=== PATIENT | male | born 1930 | race Caucasian/White ===

== ENCOUNTER 2016-10-23 13:15 | Inpatient (IN) | payer MEDICARE ==
[~2016-10-23] VITALS: Ht 175.2 cm; Wt 75.8 kg
--- NOTE | ~2016-10-23 | CON ---
[place], [place] REPORT OF CONSULTATION NAME: SUBHASH HAMMER [facility] #: [id number] UNIT #: [id number] ROOM: 416 DOCTOR: JENIFER HARMON MDSONU BIRTHDATE: [birth year] DOS: 10/25/2016 CONSULTATION REQUESTED BY: Hospitalist Service. REASON FOR CONSULTATION: Assessment of ongoing acute respiratory complaints with COPD exacerbation. HISTORY OF PRESENT ILLNESS: An 86-year-old white male who has been noted with ongoing symptoms of cough, which has been present for the past several weeks with gradual worsening occurred. The patient developed symptoms of increased shortness of breath and wheezing. He has been trying to stop his appointment with the [place] physician. An appointment for the patient was previously scheduled to be completed yesterday, but he learned that his physician who is going to see him at the [facility] was . He had been offered to have a chest x-ray done by the [facility], but the patient preferred to come to the hospital for further assessment. He has not been doing well per the patient with previous treatment. The cough has been described moderate to severe without any sputum expectoration. Coughing has been noted significantly progressive as per spouse as well who assisted with the history. He has been noted with shortness of breath, which occurs with mild exertion walking on a level surface about 10-15 feet as well. He was also noted continuous wheezing with the chest tightness. There were no symptoms of chest pain described. The patient has been assessed in the Emergency Room yesterday and has been admitted to the hospital for medical management of acute exacerbation of COPD with acute tracheobronchitis. REVIEW OF SYSTEMS: CONSTITUTIONAL: Fatigue and tiredness noted without symptoms of fever or chills. EYES: Denied any burning, redness, or tenderness. EARS, NOSE, THROAT SYMPTOMS: No sore throat, hoarseness, otalgia, postnasal drainage or epistaxis. CARDIOVASCULAR: Denies anginal pain, edema of the lower extremities or palpitations. GASTROINTESTINAL: Denies dysphagia, nausea, vomiting, diarrhea, abdominal pain, hematemesis, melena, or hematochezia. SKIN: Denies lesions or rashes. GENITOURINARY: Denies dysuria, suprapubic pain, hematuria. CENTRAL NERVOUS SYSTEM: Denies dizziness, headache, diplopia or syncopal episodes. Remaining systems were reviewed with the patient, they were noted all negative. PAST MEDICAL HISTORY: 1. History of longstanding centrilobular emphysema. 2. History of essential hypertension. 3. Gastroesophageal reflux. 4. BPH. 5. History of type 2 diabetes mellitus. SOCIAL HISTORY: The patient is and lives at home, has 2 children. He [place], [place] REPORT OF CONSULTATION NAME: SUBHASH HAMMER UNIT #: [id number] ROOM: [facility] DOCTOR: SONU SHOEMAKER MD BIRTHDATE: [birth year] has worked in the [employer] for 32 years or more. Denies any history of illicit drug use or any alcohol use. PAST SURGICAL HISTORY: No known major surgeries. FAMILY HISTORY: Noncontributory. HOME MEDICATIONS: Listed as use of terazosin, Prilosec, metformin, lisinopril, DuoNeb, albuterol sulfate with the nebulizer and Proventil HFA inhaler use as well. DRUG ALLERGIES: No known drug allergies. PHYSICAL EXAMINATION: GENERAL: This is an 86-year-old white male, currently sitting on the bed for this patient without any acute distress. His height was recorded by the nursing staff at the time of admission with height of 5 feet 9 inches, weight of 167 pounds, BMI 24.7. VITAL SIGNS: The patient showed normal temperature, respiratory rate 20-18, heart rate of 102-127 sinus tachycardia on admission, blood pressure 120/61, 101/60. Pulse oxygen saturation of the patient noted on 2 liters nasal cannula 96% saturation. HEENT: Examination shows head was atraumatic. Eyes nonicterus. NECK: Supple. CARDIOVASCULAR: S1, S2 audible. LUNGS: The patient was noted without any crackles, rhonchi, or wheezing for this patient, breaths are noted severely diminished bilaterally. ABDOMEN: Flat, soft, nontender, bowel sounds present. EXTREMITIES: Shows no edema, clubbing or cyanosis. CENTRAL NERVOUS SYSTEM: Shows no gross focal deficit. MUSCULOSKELETAL: No deformities. SKIN: No lesions or rashes. LABORATORY DATA: CMP of the patient that was done for the patient on 10/23 for this patient shows glucose 128, BUN and creatinine was normal and other electrolytes normal except magnesium mild decreased at 1.4. PT, PTT on 10/23 was noted as normal. Lactic acid 2.7, followup lactic acid 2.5 on the . After that, no further lactic acid was done. CBC of the patient on 10/23, WBC count 12.2, hematocrit 37.7, platelet count was normal. Chest x-ray for the patient shows evidence of hyperinflation and COPD changes. IMPRESSION: 1. The patient with progressive symptoms of acute exacerbation of chronic obstructive pulmonary disease occurring for the past several days and weeks for this patient with recent worsening noted. 2. The patient with history of work in the [employer] for this patient as well. 3. History of essential hypertension and type 2 diabetes mellitus and other as listed. PLAN OF TREATMENT: The patient has been currently getting Solu-Medrol very [place], [place] REPORT OF CONSULTATION NAME: SUBHASH HAMMER UNIT #: [id number] ROOM: [facility] DOCTOR: SONU SHOEMAKER MD BIRTHDATE: [birth year] dose, which will be continued. Bronchodilator will be continued. Assess the patient for bronchoscopy that will be done on Thursday to help clear mucus plug. The patient stated the symptoms have been noted much more chronic as per spouse than actually reported by the patient, especially of cough. All other supportive plan of therapy management and care. Risk and benefits of procedure have been discussed with the patient and he was agreeable for the procedure. Procedure was planned to be done on Thursday. The patient n.p.o. past midnight status post Thursday midnight was ordered. SONU BURGESS MD CM:CONSTR:REPORT OF CONSULTATION 1243 10/26/16 0136 interface
--- NOTE | ~2016-10-23 | PR ---
[place], [place] PROGRESS NOTE [id number] UNIT #: [id number] ROOM: 416 DOCTOR: JENIFER HARMON MD,SONU BIRTHDATE: [birth year] DOS: 10/28/2016 SUBJECTIVE: He had a bronchoscopy done yesterday with significant improvement in the respiratory symptom noted. He has not been noted any ongoing acute respiratory complaints at this time. The patient remains awake and alert. Coughing and wheezing has also improved markedly. OBJECTIVE: VITAL SIGNS: For the patient which has been recorded showed the temperature noted as normal, respiratory rate recorded at 20, heart rate 83-111, blood pressure 120/82. Pulse oxygen saturation was noted on 2 L nasal cannula 96% saturation. HEENT: No acute change. NECK: Supple. CARDIOVASCULAR: S1, S2 audible. LUNGS: The patient was noted with moderate decreased breath sounds, scattered expiratory wheezing, no crackles. ABDOMEN: Soft, nontender. LABORATORY DATA: Gram stain of the bronchial washing show few white blood cells with epithelial cells, few gram-positive cocci in pairs. Final culture results were pending. IMPRESSION: 1. Marked improvement noted and resolution of the acute respiratory symptoms significantly post-bronchoscopy. 2. The patient with overall debility, which has been improving as well. PLAN OF TREATMENT: The patient will be discharged home on oral medications at present time. He needs to be assessed for home oxygen supplementation prior to the discharge. Other supportive therapy, plan and management to be continued. Usual care. Other plan of management and therapies. SONU BURGESS MD CM:PNTRANS [id number] SONU HARMON MD 10/28/16 1337 interface
--- NOTE | ~2016-10-23 | PR ---
[place], [place] PROGRESS NOTE [id number] UN[facility] #: [id number] ROOM: 416 DOCTOR: JENIFER HARMON MD,SONU BIRTHDATE: [birth year] DOS: 10/27/2016 SUBJECTIVE: The patient was seen and examined on 10/27/2016. He has been still noted with severe nonproductive cough, which has been noticed several times in the day. Denies symptoms of chest pain, wheezing and shortness of breath, the patient has been noted partially decreased. There were symptoms of chest pain. He is currently noted n.p.o. past night for bronchoscopy to be done today. OBJECTIVE: VITAL SIGNS: Normal temperature, respiratory rate 20, heart rate 110, blood pressure 122/70. Pulse oxygen saturation of the patient noted on 2 liters nasal canula, 92% saturation. HEENT: Examination shows head was atraumatic. Eyes: No icterus. NECK: Supple. CARDIOVASCULAR: S1, S2 audible. LUNGS: The patient was noted without any crackles. Mild to moderate expiratory wheezing was present. ABDOMEN: Flat, soft, nontender. EXTREMITIES: Shows no edema. LABORATORY DATA: The patient's CBC today: WBC count 13.5, hemoglobin 10.8, hematocrit 33.7, platelet count was normal. The creatinine today was noted as normal. IMPRESSION: Ongoing acute exacerbation of chronic obstructive pulmonary disease with acute tracheobronchitis with persistent symptoms of nonproductive cough was also noted. Previous history of nicotine dependence. PLAN OF TREATMENT: The patient will be continued with current plan of therapy at this time without any changes in the treatment. Continue other supportive plan and management. Any modification treatment if necessary will be done after the bronchoscopy. SONU BURGESS MD CM:PNTRANS 1013 21 SONU HARMON MD 10/27/161920 interface
--- NOTE | ~2016-10-23 | PR ---
[place], [place] PROGRESS NOTE [id number] UNIT #: [id number] ROOM: 416 DOCTOR: LANEY NGUYEN MD BIRTHDATE: [birth year] DOS: SUBJECTIVE: The has been admitted to the hospital with COPD with emphysema, with acute bronchitis, with hypoxia, hypertension, GERD syndrome, BPH, history of diabetes mellitus. He is still having a lot of cough, has been seen by Dr. Serna; and he is scheduled for bronchoscopy tomorrow. His CBC today showed white count 13,500, hemoglobin 10.8, hematocrit 33.7, 98% segmented cells, 2% lymphocytes, 13% neutrophils. Creatinine level is normal. OBJECTIVE: VITAL SIGNS: His blood pressure is 100/58, pulse is 102, respirations 18, temperature 97.9, pulse oximeter on 3 liter is 98%. HEART: Regular. CHEST: Having increased expiration with occasional crepitation. ABDOMEN: Soft. LANEY NGUYEN MD CM:PNTRANS 1 05 LANEY NGUYEN MD 10/26/16 2305 interface
--- NOTE | ~2016-10-23 | PROC NOTE ---
[place], [place] PROCEDURE NOTE NAME: SUBHASH HAMMER UNIT #: [id number] ROOM: 416 DOCTOR: JENIFER HARMON MD,SONU BIRTHDATE: [birth year] DOS: 10/27/2016 PREOPERATIVE DIAGNOSIS: Severe nonproductive cough with the patient's inability to expectorate sputum. POSTOPERATIVE DIAGNOSIS: Removal of the plugs at the mucous and endobronchial tree bilaterally, which noted very severe, bilaterally finding of acute tracheobronchitis were also noted. PROCEDURE DESCRIPTION: Informed consent was obtained for the patient. The patient brought to the OR and placed in supine position. The conscious sedation administered by the Anesthesia Department. After achieving appropriate sedation, airway introduced into the mouth. The bronchoscope advanced into the airway into laryngeal area. Epiglottis and vocal cords were seen. The bronchoscope advanced to the vocal cord into the tracheal lumen. The tracheal lumen noted moderate to large amount of thick mucoid secretions. The patient with small purulent secretions suctioned out the caterina level. Caterina noted sharp. Right upper, right middle, right lower, left upper, lingula, and lower lobe bronchi were noted with thick plugs of submucous impaction. All the secretions suctioned out clear with the help of normal saline wash, sent for culture. The procedure was tolerated by the patient without any complications. Postoperative findings were discussed with the patient's family members after the completion of the procedure. Bronchial washings sent for all the appropriate cultures. Based on the bronchoscopy, no major changes in the management will be needed. SONU BURGESS MD CM:PROCNOTE:PROCEDURE NOTE [id number] SONU HARMON MD
--- NOTE | ~2016-10-23 | PR ---
[place], [place] PROGRESS NOTE NAME: [facility]ASH [facility]MER [facility] [id number] UNIT #: [id number] ROOM: 416 DOCTOR: JENIFER HARMON MD,SONU BIRTHDATE: [birth year] DOS: 10/26/2016 SUBJECTIVE: He has been rather noted without any acute distress at this time. Coughing has been still noted severe, remains nonproductive. Shortness of breath and wheezing were noted partially decreased. Denies symptoms of chest pain, abdominal pain. He has been continued Solu-Medrol, bronchodilators and the Mucinex. OBJECTIVE: VITAL SIGNS: Shows normal temperature, respiratory rate 20, heart rate 109, blood pressure 135/74. The pulse oxygen saturation on room air was 98% saturation. HEENT: Showed no acute change. NECK: Supple. CARDIOVASCULAR SYSTEM: S1, S2 is audible. LUNGS: The patient was noted without any wheezing, without any rather crackles. Expiratory wheezing was present. ABDOMEN: Soft, nontender. LABORATORY DATA: CBC today: WBC count 13.5, hemoglobin 10.8, hematocrit 33.7, platelet count was normal. Creatinine patient noted today as normal. IMPRESSION: Acute tracheobronchitis with acute exacerbation of chronic obstructive pulmonary disease with persistent nonproductive cough. Mild leucocytosis. PLAN OF TREATMENT: Continue antibiotics, bronchodilators, and oxygen supplementation. Plan for bronchoscopy in the morning for this patient was already established. N.p.o. past midnight for tonight for the patient bronchoscopy in the morning. SONU BURGESS MD CM:PNTRANS 1529 0056 SONU HARMON MD 10/27/16 0056 interface
[~2016-10-23 13:15] MED LIST: ALLFEN400 MG PO; CRESTOR20 MG PO; GABAPENTIN300 MG PO; METFORMIN1000 MG PO; NAPROSYN500 MG PO; NORCO 325 MG-51 TAB PO; NORCO 5-325 TA1 EACH PO; PENICILLIN VK500 MG PO; PRILOSEC20 MG PO; PRINIVIL5 MG PO; PROVENTIL0.09 MG/AC INH; PYRIDIUM200 MG PO; SYMBICORT1 AE1 PO; TERAZOSIN HCL10 M1 PO; VENTOLIN H0.09 MG/AC INH; VICODIN 5/500 505 MG PO
[2016-10-23 13:30] VITALS: BP 120/61
[2016-10-23 14:08] LABS: BASO # 0.1 10*3/uL (0.0-0.1); BASO % 0.8 % (0.0-1.0); EOS # 0.1 10*3/uL (0.0-0.4); EOS % 1.8 % (1.0-4.0); HEMATOCRIT 37.7 % (42.0-52.0); HEMOGLOBIN 12.2 g/dl (14.0-18.0); IG # 0.1 10*3/uL (0.0-0.1); LYMPH # 1.2 10*3/uL (1.3-4.4); MEAN CELL VOLUME 93.3 fl (80.0-94.0); MEAN CORPUSCULAR HGB 30.2 pg (27.0-31.0); MEAN CORPUSCULAR HGB CONC 32.4 g/dl (33.0-37.0); MEAN PLATELET VOLUME 9.7 fl (9.6-12.3); MONO # 0.7 10*3/uL (0.1-1.0); MONO % 10.3 % (3.0-9.0); NEUT # 4.5 10*3/uL (2.3-7.9); NEUT % 68.3 % (47.0-73.0); PLATELET COUNT AUTOMATED 328 10*3/uL (130-400); RED BLOOD COUNT 4.04 10*6/uL (4.50-5.90); RED CELL DISTRI WIDTH 13.7 % (0-14.5); WHITE BLOOD COUNT 6.5 10*3/uL (4.8-10.8)
[2016-10-23 14:18] LABS: ALBUMIN 3.4 gm/dl (3.1-4.5); ALKALINE PHOSPHATASE 81 U/L (45-117); BILIRUBIN, TOTAL 0.4 mg/dl (0.2-1.0); BUN 10 mg/dl (7-24); CARBON DIOXIDE 30 mmol/L (21-32); CHLORIDE 105 mmol/L (98-107); EST GLOM FILT AFRICAN AMERICAN > 60 ml/min; GLUCOSE 128 mg/dL (65-99); MAGNESIUM 1.4 mg/dL (1.5-2.1); SGOT/AST 12 IU/L (3-35); SGPT/ALT 22 U/L (12-78); SODIUM 141 mmol/L (136-145); TOTAL PROTEIN 7.1 gm/dL (6.4-8.2)
[2016-10-23 14:20] LABS: C-REACTIVE PROTEIN < 0.29 MG/DL (0-0.3); TROPONIN I < 0.015 ng/ml (<0.045)
[2016-10-23 14:20] LABS: PROTHROMBIN TIME 10.2 SECONDS (9.0-12.4)
[2016-10-23 15:58] LABS: LA>2 REFLEX 2 HR DRAW NOW
[2016-10-23 16:25] LABS: LA>2 RFLX FOLLOW UP AT 2 HRS 2.7 mmol/L (0.4-2.0)
[2016-10-23 16:36] VITALS: BP 133/79
[2016-10-23] MEDS ORDERED: Ventolin 02.5 MG/3 M INH (17:03)
[2016-10-23] MEDS ORDERED: PROVENTIL0.09 MG/A1 INH (17:05)
[2016-10-23 17:34] VITALS: BP 143/79
[2016-10-23 18:19] LABS: LA>2 REFLEX 4 HR DRAW NOW
[2016-10-23 20:00] VITALS: BP 141/73
[2016-10-24] VITALS: BP 140/63
[2016-10-24 12:00] VITALS: BP 138/66
[2016-10-24 16:00] VITALS: BP 133/75
[2016-10-24 20:19] VITALS: BP 108/64
[2016-10-25] VITALS: BP 101/60
[2016-10-25 04:00] VITALS: BP 105/65
[2016-10-25 08:00] VITALS: BP 135/67
[2016-10-25 12:00] VITALS: BP 121/67
[2016-10-25 16:00] VITALS: BP 128/79
[2016-10-25 20:00] VITALS: BP 126/62
[2016-10-26] VITALS: BP 114/58
[2016-10-26 06:11] LABS: HEMATOCRIT 33.7 % (42.0-52.0); HEMOGLOBIN 10.8 g/dl (14.0-18.0); MEAN CELL VOLUME 95.2 fl (80.0-94.0); MEAN CORPUSCULAR HGB 30.5 pg (27.0-31.0); MEAN PLATELET VOLUME 10.5 fl (9.6-12.3); PLATELET COUNT AUTOMATED 293 10*3/uL (130-400); RED BLOOD COUNT 3.54 10*6/uL (4.50-5.90); RED CELL DISTRI WIDTH 13.8 % (0-14.5); WHITE BLOOD COUNT 13.5 10*3/uL (4.8-10.8)
[2016-10-26 06:33] LABS: LYMPHOCYTE # 0.3 10*3/uL (1.3-4.4); NEUTROPHIL # 13.2 10*3/uL (2.3-7.9); NEUTROPHILS 98 % (47-73); PLATELET SUFFICIENCY NORMAL (NORMAL); TOTAL CELLS COUNTED 100 #CELLS
[2016-10-26 06:44] LABS: EST GLOM FILT AFRICAN AMERICAN > 60 ml/min
[2016-10-26 08:00] VITALS: BP 113/60
[2016-10-26 12:00] VITALS: BP 135/74
[2016-10-26 16:00] VITALS: BP 133/69
[2016-10-26 20:00] VITALS: BP 146/82
[2016-10-27] VITALS (10 sets, daily range): BP systolic 117–146; BP diastolic 64–90
[2016-10-28] VITALS: BP 115/65
[2016-10-28 08:00] VITALS: BP 128/82
[2016-10-28] MEDS ORDERED: ZITHROMAX500 MG PO (11:26)
[2016-10-28] MEDS ORDERED: PREDNISONE10 MG PO (11:26)
[2016-10-28 12:00] VITALS: BP 137/69
[2016-10-28 13:08] LABS: ACID FAST SPEC PROCESSING Concentration (.)
== END 2016-10-28 15:18 | disposition home or self-care (01) | DRG 871 ==
LOC: ED 13:15 → 4E 16:10 → EDHOLD 16:10 → 4E 16:25
PROVIDERS: Internal Medicine; Internal Medicine Critical Care Medicine; Student in an Organized Health Care Education/Training Program
PROC: 0BC58ZZ Extirpation of Matter from Right Middle Lobe Bronchus, Via Natural or Artificial Opening Endoscopic (ICD-10-PCS; principal; 2016-10-27)
PROC: 0BCB8ZZ Extirpation of Matter from Left Lower Lobe Bronchus, Via Natural or Artificial Opening Endoscopic (ICD-10-PCS; principal; 2016-10-27)
PROC: 0BC48ZZ Extirpation of Matter from Right Upper Lobe Bronchus, Via Natural or Artificial Opening Endoscopic (ICD-10-PCS; principal; 2016-10-27)
PROC: 0BC88ZZ Extirpation of Matter from Left Upper Lobe Bronchus, Via Natural or Artificial Opening Endoscopic (ICD-10-PCS; principal; 2016-10-27)
PROC: 0BC68ZZ Extirpation of Matter from Right Lower Lobe Bronchus, Via Natural or Artificial Opening Endoscopic (ICD-10-PCS; principal; 2016-10-27)
PROC: 0BC98ZZ Extirpation of Matter from Lingula Bronchus, Via Natural or Artificial Opening Endoscopic (ICD-10-PCS; principal; 2016-10-27)
DX: A41.9 Sepsis, unspecified organism (principal); J18.9 Pneumonia, unspecified organism; J44.0 Chronic obstructive pulmonary disease with (acute) lower respiratory infection; E11.9 Type 2 diabetes mellitus without complications; D72.810 Lymphocytopenia; I10 Essential (primary) hypertension; J44.1 Chronic obstructive pulmonary disease with (acute) exacerbation; J20.9 Acute bronchitis, unspecified; K21.9 Gastro-esophageal reflux disease without esophagitis; N40.0 Benign prostatic hyperplasia without lower urinary tract symptoms; R09.02 Hypoxemia; R65.20 Severe sepsis without septic shock; Z79.84 Long term (current) use of oral hypoglycemic drugs; Z79.899 Other long term (current) drug therapy

== ENCOUNTER → 2018-03-12 | Outpatient (CLI) | payer MEDICARE ==
[~2018-03-12] MED LIST changes: +PREDNISONE10 MG PO; +PROVENTIL0.09 MG/A1 INH; +Ventolin 02.5 MG/3 M INH; +ZITHROMAX500 MG PO
== END | disposition home or self-care (01) ==
LOC: CARD 08:30
DX: I34.0 Nonrheumatic mitral (valve) insufficiency (principal)

== ENCOUNTER → 2018-08-09 | Outpatient (CLI) | payer OTHER, MEDICARE | END | disposition home or self-care (01) | LOC: RAD 10:07 | DX: M25.642 Stiffness of left hand, not elsewhere classified (principal); M25.641 Stiffness of right hand, not elsewhere classified ==

== ENCOUNTER → 2020-09-05 | Outpatient (CLI) | payer MEDICARE ==
[2020-09-05 11:40] LABS: ACT PARTIAL THROMBO TIME 25.4 SECONDS (20.0-32.1)
== END | disposition home or self-care (01) ==
LOC: LAB 10:44
PROVIDERS: ATTEND Urology
DX: Z01.818 Encounter for other preprocedural examination (principal); R00.0 Tachycardia, unspecified; D68.8 Other specified coagulation defects

== ENCOUNTER 2021-08-11 10:24 | Emergency (ER) | payer MEDICARE ==
[2021-08-11 10:32] VITALS: BP 135/78
[2021-08-11 11:04] LABS: BILIRUBIN Negative (Negative); BLOOD 2+ (Negative); CLARITY Clear (Clear); COLOR Yellow (Yellow); GLUCOSE 1+ (Negative); KETONE Negative (Negative); LEUKO ESTERASE Negative (Negative); NITRITE Negative (Negative); UROBILINOGEN 0.2 E.U./dl (0.0-1.0)
[2021-08-11 11:25] LABS: RBC 41-50 rbc/hpf (0-2)
[2021-08-11 11:26] LABS: BACTERIA TRACE; WBC 0-2 wbc/hpf (0-5)
== END 2021-08-11 11:49 | disposition home or self-care (01) ==
LOC: ED 10:24
PROVIDERS: Emergency Medicine
DX: R33.9 Retention of urine, unspecified (principal); Z79.899 Other long term (current) drug therapy; Z98.890 Other specified postprocedural states

== ENCOUNTER → 2021-08-30 | Outpatient (CLI) | payer OTHER ==
[2021-08-30 09:43] LABS: CREATININE 0.91 mg/dL (0.70-1.30)
== END | disposition home or self-care (01) ==
LOC: CT 09:00 → LAB 09:06
PROVIDERS: Radiology Diagnostic Radiology; ATTEND Urology
DX: N20.0 Calculus of kidney (principal); N40.0 Benign prostatic hyperplasia without lower urinary tract symptoms; I31.3 Pericardial effusion (noninflammatory)

== ENCOUNTER → 2021-09-11 | Outpatient (CLI) | payer OTHER | END | disposition home or self-care (01) | LOC: CARD 11:47 | PROVIDERS: ATTEND Urology | DX: Z01.818 Encounter for other preprocedural examination (principal); R94.31 Abnormal electrocardiogram [ECG] [EKG]; R00.0 Tachycardia, unspecified; R33.9 Retention of urine, unspecified; I25.10 Atherosclerotic heart disease of native coronary artery without angina pectoris ==

== ENCOUNTER 2021-12-25 19:04 | Emergency (ER) | payer MEDICARE ==
[~2021-12-25] VITALS: Ht 175.2 cm; Wt 65.8 kg
[2021-12-25 19:49] VITALS: BP 144/100
[2021-12-25] MEDS ORDERED: FLOMAX0.4 MG PO (19:50)
[2021-12-25 20:22] LABS: BILIRUBIN Negative (Negative); BLOOD 3+ (Negative); CLARITY Turbid (Clear); COLOR Orange (Yellow); GLUCOSE Negative (Negative); KETONE Negative (Negative); LEUKO ESTERASE 3+ (Negative); NITRITE Negative (Negative); PH 5.5 (4.5-8.0); SPECIFIC GRAVITY <= 1.005 (1.001-1.030); UROBILINOGEN 0.2 E.U./dl (0.0-1.0)
[2021-12-25 20:36] LABS: WBC TNTC wbc/hpf (0-5)
[2021-12-25] MEDS ORDERED: MACROBID100 M1 PO (20:51)
== END 2021-12-25 21:09 | disposition home or self-care (01) ==
LOC: ED 19:04
PROVIDERS: Physician Assistant
DX: R33.9 Retention of urine, unspecified (principal); N39.0 Urinary tract infection, site not specified; Z79.899 Other long term (current) drug therapy; Z98.890 Other specified postprocedural states

== ENCOUNTER 2022-01-03 16:24 | Emergency (ER) | payer MEDICARE ==
[~2022-01-03 16:24] MED LIST changes: +FLOMAX0.4 MG PO; +MACROBID100 M1 PO; +METFORMIN HYDR500 MG PO; -METFORMIN1000 MG PO
[2022-01-03 18:06] LABS: HEMATOCRIT 36.3 % (42.0-52.0); MEAN CORPUSCULAR HGB 31.7 pg (27.0-31.0); MEAN CORPUSCULAR HGB CONC 33.3 g/dl (33.0-37.0); MEAN PLATELET VOLUME 9.5 fl (9.6-12.3); PLATELET COUNT AUTOMATED 258 10*3/uL (130-400); RED BLOOD COUNT 3.82 10*6/uL (4.50-5.90); RED CELL DISTRI WIDTH 13.2 % (0-14.5); WHITE BLOOD COUNT 11.7 10*3/uL (4.8-10.8)
[2022-01-03 18:10] LABS: MANUAL DIFF REFLEX YES
[2022-01-03 18:26] LABS: ALKALINE PHOSPHATASE 143 U/L (45-117); BUN 24 mg/dl (7-24); CHLORIDE 102 mmol/L (98-107); CREATININE 1.31 mg/dL (0.70-1.30); POTASSIUM 4.4 mmol/L (3.5-5.1); SGOT/AST 72 IU/L (3-35); SGPT/ALT 104 U/L (12-78); SODIUM 134 mmol/L (136-145); TOTAL PROTEIN 7.1 gm/dL (6.4-8.2)
[2022-01-03 18:27] LABS: BILIRUBIN 1+ (Negative); BLOOD 3+ (Negative); CLARITY Turbid (Clear); COLOR Dark Yellow (Yellow); GLUCOSE 2+ (Negative); KETONE Trace (Negative); LEUKO ESTERASE 3+ (Negative); NITRITE Negative (Negative); PH 5.5 (4.5-8.0)
[2022-01-03 18:48] LABS: PLATELET SUFFICIENCY NORMAL (NORMAL); STOMATOCYTE FEW; TOTAL CELLS COUNTED 100 #CELLS
[2022-01-03 18:52] LABS: WBC TNTC wbc/hpf (0-5); YEAST 4+
[2022-01-03] MEDS ORDERED: FINASTERIDE5 M1 PO (20:25)
[2022-01-03] MEDS ORDERED: TAMSULOSIN HCL0.4 MG PO (20:25)
[2022-01-03] MEDS ORDERED: CELEBREX100 MG PO (20:26)
[2022-01-03] MEDS ORDERED: SINGULAIR10 M1 PO (20:26)
[2022-01-03] MEDS ORDERED: NITROFURANTOIN50 M2 PO (20:27)
[2022-01-03] MEDS ORDERED: CENTRUM SILVER1 EAC3 PO (20:27)
[2022-01-03 21:59] VITALS: BP 94/61
== END 2022-01-03 23:30 | disposition short-term general hospital (02) ==
LOC: ED 16:24
PROVIDERS: Nurse Practitioner Family
DX: T83.511A Infection and inflammatory reaction due to indwelling urethral catheter, initial encounter (principal); Z20.822 Contact with and (suspected) exposure to COVID-19; N39.0 Urinary tract infection, site not specified; J18.9 Pneumonia, unspecified organism; R73.9 Hyperglycemia, unspecified; R74.01 Elevation of levels of liver transaminase levels; Z79.899 Other long term (current) drug therapy; Z79.2 Long term (current) use of antibiotics; Z87.442 Personal history of urinary calculi; Y84.8 Other medical procedures as the cause of abnormal reaction of the patient, or of later complication, without mention of misadventure at the time of the procedure; Y92.89 Other specified places as the place of occurrence of the external cause